=== PATIENT | female | born 1985 | race Hispanic/Latino ===

== ENCOUNTER 2023-08-29 12:28 | Emergency (ER) | payer MEDICAID ==
[~2023-08-29] VITALS: Ht 152.4 cm; Wt 93.0 kg
[2023-08-29 13:40] LABS: APPEARANCE,URINE CLEAR (CLEAR); BILIRUBIN,URINE NEGATIVE (NEGATIVE); COLOR,URINE LIGHT-YELLOW (YELLOW); GLUCOSE, URINE (UA) NEGATIVE (NEGATIVE); KETONES,URINE NEGATIVE (NEGATIVE); LEUKOCYTE ESTERASE ,URINE NEGATIVE Leu/uL (NEGATIVE); NITRATE,URINE NEGATIVE (NEGATIVE); PH,URINE 6.5 (5.0-8.0); PROTEIN,URINE NEGATIVE (NEGATIVE); UROBILINOGEN,URINE 0.2 mg/dL (0.2-1.0)
[2023-08-29] MEDS: NAPROXEN 500 MG TABLET PO ONE (13:52)
[2023-08-29 13:53] VITALS: BP_SYST 149
[2023-08-29 13:56] LABS: HCG,QUALITATIVE URINE NEGATIVE (NEGATIVE)
[2023-08-29 14:06] LABS: ADD UA MICROSCOPIC YES
[2023-08-29 14:21] LABS: MUCUS,URINE RARE LPF (None Seen); SQUAMOUS EPITHELIAL CELL,UR RARE /HPF (0-2)
[2023-08-29 15:18] VITALS: BP_DIAS 128; PULSE 69; RESP 18; O2SAT 96
[2023-08-29] MEDS ORDERED: TAMS-1 PO (15:26)
[2023-08-29] MEDS ORDERED: NAPR500T6 PO (15:27)
[2023-08-29] MEDS: TAMSULOSIN HCL 0.4 MG CAP.ER.24H PO ONE (15:47)
== END 2023-08-29 15:55 | disposition home or self-care (01) ==
LOC: EDH 12:28
DX: N20.0 Calculus of kidney (principal)
CPT/HCPCS: 74018; 76856; 81001; 81025

== ENCOUNTER 2024-06-14 15:07 | Emergency (ER) | payer BC, MEDICAID ==
[~2024-06-14] VITALS: Ht 152.4 cm; Wt 88.9 kg
[~2024-06-14 15:07] MED LIST: NAPR-1506 PO; TAMS-1 PO
[2024-06-14 15:13] VITALS: BP 153/61; PULSE 66; RESP 18; TEMP 98.4; O2SAT 99
[2024-06-14] MEDS ORDERED: ACET-2079 PO (15:43)
--- NOTE | 2024-06-14 15:45 | ERN ---
ED Note History of Present Illness Stated Complaint: CALF PAIN Chief Complaint: Lower Extremity Pain/Injury Time Seen by MD: 15:15 Dictation: PATIENT IS A 39-YEAR-OLD FEMALE HERE WITH A SUDDEN ONSET OF LEFT LATERAL CALF TENDERNESS WITH ECCHYMOSIS ONSET 06/09. SHE STATES SHE WAS STANDING NEXT TO HER MANY VAN PLACING HER 5-YEAR-OLD IN THE CAR WHEN SHE FELT A SUDDEN POP AND WAS UNABLE TO WALK ON IT SINCE. NEUROVASCULAR CMS INTACT [facility]. SHE HAS NOT TAKEN ANYTHING TODAY PRIOR TO ARRIVAL FOR PAIN, NO PRIMARY CARE DOCTOR AT THIS TIME Allergies: Coded Allergies: No Known Drug Allergies (Unverified Allergy, Unknown, 03/24/16) Home Meds Active Scripts Naproxen (Naproxen) 500 Mg Tablet., 500 MG PO BIDPC, #30 TAB Prov:ADAM ALLEN V RELAY OPERATOR 08/29/23 Tamsulosin HCl (Flomax) 0.4 Mg Cap.er.24h, 0.4 MG PO DAILY, #30 CAPSULE. Prov:ADAM ALLEN 08/29/23 Past Medical History Past Medical History: No Pertinent History Surgical History: None History: Not Applicable RN Note Reviewed/Agreed w/PFSH: Yes Review of System Dictation CONSTITUTIONAL: NEGATIVE EXCEPT FOR HPI HEAD/FACE: NEGATIVE EXCEPT FOR HPI EENT: NEGATIVE EXCEPT FOR HPI RESPIRATORY: NEGATIVE EXCEPT FOR HPI GASTROINTESTINAL/ABDOMINAL: NEGATIVE EXCEPT FOR HPI GENITOURINARY: NEGATIVE EXCEPT FOR HPI MUSCULOSKELETAL: NEGATIVE EXCEPT FOR HPI LEFT CALF PAIN INTEGUMENTARY: NEGATIVE EXCEPT FOR HPI NEUROLOGICAL/PSYCH: NEGATIVE EXCEPT FOR HPI HEMATOLOGIC/LYMPHATIC: NEGATIVE EXCEPT FOR HPI ALL SYSTEMS NEGATIVE, EXCEPT NOTED ABOVE. 13 POINT REVIEW OF SYSTEMS ASSESSED AND ALL NEGATIVE EXCEPT FOR ABOVE. Initial Vital Sign VS Vital Signs Date Time Temp Pulse Resp B/P (MAP) Pulse Ox O2 Delivery O2 Flow Rate FiO2 06/14/24 15:10 98.1 66 18 153/61 99 Room Air 0 06/14/24 15:13 21 Physical Exam Dictation VITAL SIGNS REVIEWED GENERAL APPEARANCE: ALERT, ORIENTED X 3, MILD ACUTE DISTRESS, WELL DEVELOPED, NOURISHED. HEAD AND FACE: NON-TRAUMATIC. EYES: PERRL, PINK CONJUNCTIVAS, EYELID NO TRAUMA, ANTERIOR CHAMBER WITH ARCUS SENILIS. EARS: PINNAS INTACT AND NO SIGNS OF TRAUMA OR ERYTHEMA EAR CANALS CLEAR AND NO DISCHARGE TM NO ERYTHEMA NOSE: NO DISCHARGE, NO BLEEDING. OROPHARYNX: MOUTH NORMAL, TONGUE PINK, PHARYNX CLEAR,NO ERYTHEMA, TONSILS NO EXUDATES, NO ABSCESSES NOTED, MUCOUS MEMBRANE MOIST NECK: SUPPLE, NON-TENDER, NO THYROMEGALY, NO MASSES, NO JVD, NO BRUITS BREAST:DEFERRED CHEST:NO TENDERNESS, NO CREPITUS, NO PARADOXICAL MOVEMENT, NO RETRACTIONS LUNGS:CLEAR, WELL-VENTILATED, SYMMETRIC, NO RALES, NO WHEEZING, NO RHONCHI, NO STRIDOR, GOOD BREATH SOUNDS BILATERALLY HEART: REGULAR RATE, REGULAR RHYTHM, NO MURMUR, NO GALLOPS VASCULAR: NO PERIPHERAL EDEMA, ABDOMEN: SOFT, POSITIVE BOWEL SOUNDS, NONDISTENDED, NO GUARDING, NONTENDER, NO REBOUND, NO MASSES NO HEPATOMEGALY, NO SPLENOMEGALY, NO RICCI'S SIGN, NO HERNIAS. RECTAL: DEFERRED GENITAL: DEFERRED NEUROLOGICAL: NORMAL SPEECH, MOTOR FUNCTION INTACT, SENSORY FUNCTION INTACT MUSCULOSKELETAL: NECK NONTENDER, FULL RANGE OF MOTION, BACK NONTENDER, FULL RANGE OF MOTION, EXTREMITIES: POSTERIOR LEFT CALF WITH MILD ECCHYMOSIS WITHOUT SWELLING [facility] INTACT [facility]. SKIN: COLOR PINK, DRY, NO TURGOR, NO RASH, NO LACERATIONS, NO ABRASIONS, NO CONTUSIONS. LYMPHATIC: DEFERRED Results (Laboratory/Radiology) Labs Reviewed?: Yes ED Course ED Course Orders Procedure Category Date Status Time Acetaminophen With PHA 06/14/24 In Process Codeine (Tylenol-Code 16:00 Current Medications Medications (Trade) Dose Ordered Sig/Cristofer Route PRN Reason Start Time Stop Time Status Last Admin Dose Admin Acetaminophen/ Codeine Phosphate (TYLenol-coDEINE TAB) 2 tab ONCE ONCE PO 06/14/24 16:00 06/14/24 16:01 Vital Signs Date Time Temp Pulse Resp B/P (MAP) Pulse Ox O2 Delivery O2 Flow Rate FiO2 06/14/24 15:13 98.4 66 18 153/61 99 Room Air* 0 21 06/14/24 15:10 98.1 66 18 153/61 99 Room Air 0 FIFTEEN 40, PATIENT IS AWARE THAT I DO NOT HAVE THE ABILITY TO ORDER AN MRI AT THIS TIME. ULTRASOUND WOULD NOT BE BENEFICIAL WOULD BE AN X-RAY. PATIENT WILL BE DISCHARGED WITH ORTHOPEDIC SURGEON'S NAME AND TOLD TO CONTINUE USING HER CRUTCHES UNTIL SHE SEES HIM Medical Decision Making MDM MEDICAL DECISION-MAKING BASED ON EXAMINATION. PATIENT STATES SHE HAD BEEN TO TWO PRIOR URGENT CARES WHO TOLD HER SHE NEEDS AN MRI AND GO TO [facility]. I INFORMED HER I WAS UNABLE TO PERFORM AN MRI IN THE ED HOWEVER I WOULD REFER HER TO AND CONTROL HER PAIN UNTIL HE COULD EXAMINE HER THIS WEEK. [facility] INTACT ON DISCHARGE DX & DISP Disposition: Discharge Departure Impression: Primary Impression: Pain of left calf Condition: Stable Scripts Acetaminophen with Codeine (Acetaminophen-Cod #3 Tablet) 300 Mg-30 Mg Tablet 1 TAB PO Q4H PRN for MODERATE TO SEVERE, #15 TAB 0 Refills Prov: TATA SAM NP 06/14/24 Additional Instructions: Follow-up with primary care provider in 1 to 2 days. Take medications as directed here in the emergency room. Okay to continue home medications unless otherwise discussed during your visit in the emergency room today. Return to your nearest emergency room if symptoms worsen or if there is no improvement. Call 911 if you need immediate assistance. Take Tylenol or Motrin [id number] as needed and if no contraindications are present. Increase oral hydration. A wound culture or urine culture was ordered here in the emergency room department please follow-up with primary care provider and advise them to get repeat ports from our facility. If you had any Chase wrap/splints that were applied here, please do not remove them until you see your primary care or specialty. Crutches and no weight-bearing left leg until cleared by orthopedic surgeon, call for an appointment on tomorrow. Referrals: ISRAEL MARIN MD (PCP) SHAILESH CONTRERAS MD Time of Disposition: 15:42 I have reviewed the case, and I agree with, Diagnosis and Plan TATA SAM NP Jun 14, 2024 15:45
[2024-06-14] MEDS ORDERED: acetaMINOPHEN WITH coDEINE 1 TAB TAB PO ONE (16:00)
== END 2024-06-14 17:21 | disposition left against medical advice (07) ==
LOC: EDH 15:07
DX: S80.12XA Contusion of left lower leg, initial encounter (principal); Z79.899 Other long term (current) drug therapy; X58.XXXA Exposure to other specified factors, initial encounter; Y93.89 Activity, other specified; Y92.89 Other specified places as the place of occurrence of the external cause; Y99.8 Other external cause status
CPT/HCPCS: 99283